=== PATIENT | male | born 1945 | race Caucasian/White ===

== ENCOUNTER 2016-04-05 14:42 | Inpatient (IN) | payer OTHER ==
[~2016-04-05] VITALS: Ht 182.9 cm; Wt 132.8 kg
[~2016-04-05 14:42] MED LIST: ADVAIR 250/501 DISK IH; ALDACTONE25 MG PO; ASCORBIC ACID500 M3 PO; ASPIR-LOW81 MG PO; ASPIRIN81 M2 PO; BACTRIM,SEPT1 TABLET PO; CELEBREX200 MG PO; COREG12.5 M1 PO; COREG12.5 MG PO; COREG25 M1 PO; CORTISPORIN-TC10 M1 RIGHT EAR; COUMADIN PO; CYANOCOBALAM1000 MCG PO; DAILY VITAMIN1 EAC8 PO; DOCUSATE SODIU100 MG PO; DOXYCYCLINE HY100 MG PO; DULERA 200 MCG/13 GM IH; ENDOCET 5-3251 EACH PO; EXFORGE 5/161 TABLET PO; FERROUS SULFAT325 MG PO; FINASTERIDE5 MG PO; FLOMAX0.4 MG PO; FOLIC ACID1 MG PO; FUROSEMIDE20 MG PO; GABAPENTIN300 MG PO; GLIPIZIDE XL5 MG PO; GLIPIZIDE5 MG PO; GLUCOPHAGE XR750 MG PO; GLUCOTROL XL5 MG PO; HYDROCHLOROTHIA25 MG PO; HYZAAR 100-21 TABLET PO; IRON325 MG PO; LANOXIN,DIGIT0.25 MG PO; LASIX20 MG PO; LEVAQUIN750 MG PO; LEVOFLOXACIN500 MG PO; LEXAPRO10 MG PO; LIDOCAINE700 MG TD; LIPITOR40 MG PO; LISINOPRIL20 MG PO; LOVENOX40 MG/0.4 SC; Lasix PO; METFORMIN HCL500 M1 PO; MULTI-VITAMIN-1 EACH PO; MULTIPLE VITAM1 EACH PO; NORVASC5 MG PO; OMEPRAZOLE40 M1 PO; OXYCODONE-APAP1 EACH PO; POTASSIUM CHLO20 ME1 PO; POTASSIUM CHLORIDE PO; PREDNISONE10 MG PO; PRINIVIL5 MG PO; PROAIR HFA8.5 GM IH; PROSCAR5 MG PO; ROXICET 5-3251 EACH PO; SENNA PLUS TAB1 EACH PO; SENOKOT S,PE1 TABLET PO; SERTRALINE HCL100 MG PO; SPIRONOLACTONE25 MG PO; THERAGRAN1 TABLET PO; VENTOLIN HFA18 GM IH; VITAMIN D-32000 UNI2 PO; Vicodin,Lortab 5/500 PO; ZAFIRLUKAST20 M1 PO; [UNRECOGNIZED DRUG - OTHER] PO
[2016-04-05 15:35] LABS: HEMATOCRIT 39.8 % (38.0-50.0); MCH 28.5 PG (29.0-34.0); MCHC 32.2 G/DL (30.0-36.0); MCV 88.6 FL (86-99); MEAN PLAT.VOLUME 11.1 uM^3 (9.0-12.4); PLATELET COUNT 127 K/uL (156-360); RBC DIS.WIDTH-CV 17.2 % (11.8-14.6); RBC DIS.WIDTH-SD 54.2 % (39-53); RED BLOOD COUNT 4.49 M/uL (4.00-5.50); WHITE BLOOD COUNT 5.8 K/uL (4.1-10.2)
[2016-04-05 15:52] LABS: CHLORIDE 105 mEq/L (99-109); POTASSIUM 4.4 mEq/L (3.7-5.4); SODIUM 142 mEq/L (136-147)
[2016-04-05 15:55] LABS: GLUCOSE 175 mg/dL (70-99)
[2016-04-05 15:56] LABS: ANION GAP 9 MEQ/L (2-14)
[2016-04-05 15:58] LABS: ALKALINE PHOSPHATASE 62 IU/L (3-129); GFR ESTIMATE (CALCULATED) 58 mL/min/
[2016-04-05 15:59] LABS: UREA NITROGEN (BUN) 29 mg/dL (9-23)
[2016-04-05 16:00] LABS: DIRECT BILIRUBIN 0.5 mg/dL (0.0-0.3)
[2016-04-05 16:05] LABS: TROP-I INTERPRETATION NEGATIVE; TROPONIN-I 0.03 ng/mL (0.0-0.30)
[2016-04-05 17:50] LABS: INFLUENZA A VIRAL ANTIGEN NEGATIVE; INFLUENZA B VIRAL ANTIGEN NEGATIVE
[2016-04-05] MEDS ORDERED: LOW DOSE ASPIRI81 M1 PO (18:34)
[2016-04-05] MEDS ORDERED: GABAPENTIN600 MG PO (18:35)
[2016-04-05] MEDS ORDERED: VITAMIN D31000 UNI2 PO (18:36)
[2016-04-05] MEDS ORDERED: VITAMIN B-122500 MCG SL (18:42)
[2016-04-05] MEDS ORDERED: FERROUS SULFAT325 MG PO (18:43)
[2016-04-05 20:48] VITALS: BP 164/77
[2016-04-05 22:18] LABS: TROP-I INTERPRETATION NEGATIVE; TROPONIN-I 0.04 ng/mL (0.0-0.30)
[2016-04-06 00:16] VITALS: BP 148/88
[2016-04-06 04:18] VITALS: BP 141/83
[2016-04-06 05:02] LABS: CHLORIDE 104 mEq/L (99-109); SODIUM 142 mEq/L (136-147)
[2016-04-06 05:05] LABS: ANION GAP 11 MEQ/L (2-14)
[2016-04-06 05:07] LABS: GFR ESTIMATE (CALCULATED) > 59 mL/min/
[2016-04-06 05:08] LABS: UREA NITROGEN (BUN) 26 mg/dL (9-23)
[2016-04-06 05:14] LABS: TROP-I INTERPRETATION NEGATIVE; TROPONIN-I 0.04 ng/mL (0.0-0.30)
[2016-04-06 05:19] LABS: GLUCOSE 101 mg/dL (70-99); POTASSIUM 3.4 mEq/L (3.7-5.4)
[2016-04-06 08:18] VITALS: BP 142/94
[2016-04-06 11:30] VITALS: BP 116/61
[2016-04-06 15:50] VITALS: BP 125/71
[2016-04-06 19:41] VITALS: BP 134/81
[2016-04-07] VITALS (7 sets, daily range): BP systolic 129–151; BP diastolic 71–93
[2016-04-07 07:05] LABS: HEMATOCRIT 40.3 % (38.0-50.0); MCH 27.9 PG (29.0-34.0); MEAN PLAT.VOLUME 12.3 uM^3 (9.0-12.4); PLATELET COUNT 117 K/uL (156-360); RBC DIS.WIDTH-CV 17.1 % (11.8-14.6); RBC DIS.WIDTH-SD 56.6 % (39-53); RED BLOOD COUNT 4.48 M/uL (4.00-5.50); WHITE BLOOD COUNT 4.4 K/uL (4.1-10.2)
[2016-04-07 07:48] LABS: ANION GAP 8 MEQ/L (2-14); CHLORIDE 104 MEQ/L (99-109); GFR ESTIMATE (CALCULATED) > 59 mL/min/; GLUCOSE 85 mg/dL (70-99); SAMPLE HEMOLYSIS CHECK 0; SAMPLE ICTERIC CHECK 0; SAMPLE LIPEMIA CHECK 0; SODIUM 145 MEQ/L (136-147); UREA NITROGEN (BUN) 23 mg/dL (9-23)
[2016-04-07 07:49] LABS: POTASSIUM 4.2 MEQ/L (3.7-5.4)
[2016-04-08 03:40] VITALS: BP 128/85
[2016-04-08 08:00] VITALS: BP 156/97
[2016-04-08 11:00] VITALS: BP 121/68
[2016-04-08 16:00] VITALS: BP 122/68
[2016-04-08 20:15] VITALS: BP 132/81
[2016-04-09 00:25] VITALS: BP 136/84
[2016-04-09 04:12] VITALS: BP 162/83
[2016-04-09 07:38] VITALS: BP 145/90
[2016-04-09 08:43] LABS: HEMATOCRIT 36.9 % (38.0-50.0); MCH 27.6 PG (29.0-34.0); MCHC 30.9 G/DL (30.0-36.0); MCV 89.3 FL (86-99); MEAN PLAT.VOLUME 11.5 uM^3 (9.0-12.4); PLATELET COUNT 118 K/uL (156-360); RBC DIS.WIDTH-CV 16.8 % (11.8-14.6); RBC DIS.WIDTH-SD 55.5 % (39-53); RED BLOOD COUNT 4.13 M/uL (4.00-5.50); WHITE BLOOD COUNT 4.5 K/uL (4.1-10.2)
[2016-04-09 09:03] LABS: ANION GAP 6 MEQ/L (2-14); CHLORIDE 104 MEQ/L (99-109); GFR ESTIMATE (CALCULATED) > 59 mL/min/; GLUCOSE 82 mg/dL (70-99); POTASSIUM 3.7 MEQ/L (3.7-5.4); SAMPLE HEMOLYSIS CHECK 0; SAMPLE ICTERIC CHECK 0; SAMPLE LIPEMIA CHECK 0; SODIUM 145 MEQ/L (136-147); UREA NITROGEN (BUN) 23 mg/dL (9-23)
[2016-04-09 11:51] VITALS: BP 122/76
[2016-04-09 15:38] VITALS: BP 138/91
[2016-04-09 19:43] VITALS: BP 143/88
[2016-04-10 00:44] VITALS: BP 149/86
[2016-04-10 08:18] VITALS: BP 149/94
[2016-04-10 08:35] LABS: HEMATOCRIT 38.2 % (38.0-50.0); MCHC 31.2 G/DL (30.0-36.0); MCV 89.9 FL (86-99); MEAN PLAT.VOLUME 12.1 uM^3 (9.0-12.4); PLATELET COUNT 132 K/uL (156-360); RBC DIS.WIDTH-CV 16.9 % (11.8-14.6); RBC DIS.WIDTH-SD 55.2 % (39-53); RED BLOOD COUNT 4.25 M/uL (4.00-5.50); WHITE BLOOD COUNT 5.4 K/uL (4.1-10.2)
[2016-04-10 08:56] LABS: ANION GAP 7 MEQ/L (2-14); CHLORIDE 103 MEQ/L (99-109); GFR ESTIMATE (CALCULATED) > 59 mL/min/; GLUCOSE 82 mg/dL (70-99); SAMPLE HEMOLYSIS CHECK 0; SAMPLE ICTERIC CHECK 0; SAMPLE LIPEMIA CHECK 0; SODIUM 146 MEQ/L (136-147); UREA NITROGEN (BUN) 21 mg/dL (9-23)
[2016-04-10] MEDS ORDERED: ADVAIR HFA120 INHAL1 IH (10:14)
== END 2016-04-10 15:10 | disposition home or self-care (01) | DRG 291 ==
LOC: EME 14:42 → 5SOUTH 19:12 → EDOF 19:12 → 5SOUTH 20:36
PROVIDERS: Emergency Medicine; Family Medicine; Hospitalist; Physician Assistant Medical
DX: I50.43 Acute on chronic combined systolic (congestive) and diastolic (congestive) heart failure (principal); J96.21 Acute and chronic respiratory failure with hypoxia; E87.0 Hyperosmolality and hypernatremia; E66.01 Morbid (severe) obesity due to excess calories; I27.2 Other secondary pulmonary hypertension; Z99.81 Dependence on supplemental oxygen; M16.0 Bilateral primary osteoarthritis of hip; G47.33 Obstructive sleep apnea (adult) (pediatric); E87.6 Hypokalemia; I10 Essential (primary) hypertension; E11.9 Type 2 diabetes mellitus without complications; E78.5 Hyperlipidemia, unspecified; J44.9 Chronic obstructive pulmonary disease, unspecified; N20.0 Calculus of kidney; K05.10 Chronic gingivitis, plaque induced; I51.7 Cardiomegaly; R43.0 Anosmia; Z98.84 Bariatric surgery status; Z68.37 Body mass index [BMI] 37.0-37.9, adult; Z96.642 Presence of left artificial hip joint; Z96.652 Presence of left artificial knee joint; Z87.891 Personal history of nicotine dependence
CPT/HCPCS: 70450; 71010; 71020; 80048; 80076; 83880; 84484; 85027; 87502; 93005; 93306; 94640; 94640 76; 94660; 94760; 94799; 99202; 99281; 99285; J1644; J1940

== ENCOUNTER 2016-04-17 05:54 | Emergency (ER) | payer OTHER ==
[~2016-04-17] VITALS: Ht 182.9 cm; Wt 125.0 kg
[~2016-04-17 05:54] MED LIST changes: +ADVAIR HFA120 INHAL1 IH; +GABAPENTIN600 MG PO; +LOW DOSE ASPIRI81 M1 PO; +VITAMIN B-122500 MCG SL; +VITAMIN D31000 UNI2 PO
[2016-04-17 06:50] LABS: HEMATOCRIT 39.1 % (38.0-50.0); MCH 27.6 PG (29.0-34.0); MCHC 31.5 G/DL (30.0-36.0); MCV 87.7 FL (86-99); PLATELET COUNT 164 K/uL (156-360); RBC DIS.WIDTH-CV 16.9 % (11.8-14.6); RBC DIS.WIDTH-SD 52.9 % (39-53); RED BLOOD COUNT 4.46 M/uL (4.00-5.50); WHITE BLOOD COUNT 7.2 K/uL (4.1-10.2)
[2016-04-17 06:52] LABS: CHLORIDE 107 mEq/L (99-109); POTASSIUM 3.9 mEq/L (3.7-5.4); SODIUM 144 mEq/L (136-147)
[2016-04-17 06:54] LABS: GLUCOSE 104 mg/dL (70-99)
[2016-04-17 06:55] LABS: ANION GAP 9 MEQ/L (2-14)
[2016-04-17 06:58] LABS: GFR ESTIMATE (CALCULATED) > 59 mL/min/
[2016-04-17 07:00] LABS: UREA NITROGEN (BUN) 32 mg/dL (9-23)
[2016-04-17 08:23] VITALS: BP 147/83
== END 2016-04-17 08:24 | disposition home or self-care (01) ==
LOC: EME 05:54
PROVIDERS: Emergency Medicine
DX: R04.0 Epistaxis (principal); I10 Essential (primary) hypertension; E11.9 Type 2 diabetes mellitus without complications; Z96.641 Presence of right artificial hip joint; Z96.652 Presence of left artificial knee joint; Z88.0 Allergy status to penicillin; Z91.041 Radiographic dye allergy status
CPT/HCPCS: 80048; 85027; 99281; 99284

== ENCOUNTER 2016-06-03 16:54 | Inpatient (IN) | payer OTHER ==
[~2016-06-03] VITALS: Ht 182.9 cm; Wt 124.1 kg
[2016-06-03 17:26] LABS: MCH 27.9 PG (29.0-34.0); MCHC 30.7 G/DL (30.0-36.0); MCV 90.9 FL (86-99); MEAN PLAT.VOLUME 11.5 uM^3 (9.0-12.4); PLATELET COUNT 151 K/uL (156-360); RBC DIS.WIDTH-SD 59.7 % (39-53); RED BLOOD COUNT 4.73 M/uL (4.00-5.50); WHITE BLOOD COUNT 5.8 K/uL (4.1-10.2)
[2016-06-03 17:40] LABS: CHLORIDE 105 mEq/L (99-109); POTASSIUM 3.9 mEq/L (3.7-5.4); SODIUM 144 mEq/L (136-147)
[2016-06-03 17:42] LABS: GLUCOSE 114 mg/dL (70-99)
[2016-06-03 17:43] LABS: ANION GAP 10 MEQ/L (2-14)
[2016-06-03 17:46] LABS: GFR ESTIMATE (CALCULATED) 58 mL/min/
[2016-06-03 17:47] LABS: TROP-I INTERPRETATION NEGATIVE; TROPONIN-I 0.02 ng/mL (0.0-0.30); UREA NITROGEN (BUN) 29 mg/dL (9-23)
[2016-06-03] MEDS ORDERED: LASIX40 MG PO (19:38)
[2016-06-03] MEDS ORDERED: SYMBICORT60 INHALAT IH (19:39)
[2016-06-03] MEDS ORDERED: ADULTS 50+ MUL1 EACH PO (19:42)
[2016-06-04 00:18] VITALS: BP 142/84
[2016-06-04 01:30] LABS: TROP-I INTERPRETATION NEGATIVE; TROPONIN-I 0.02 ng/mL (0.0-0.30)
[2016-06-04 04:30] VITALS: BP 165/96
[2016-06-04 06:15] LABS: ANION GAP 8 MEQ/L (2-14); CHLORIDE 102 MEQ/L (99-109); GFR ESTIMATE (CALCULATED) > 59 mL/min/; POTASSIUM 3.7 MEQ/L (3.7-5.4); SAMPLE HEMOLYSIS CHECK 0; SAMPLE ICTERIC CHECK 0; SAMPLE LIPEMIA CHECK 0; SODIUM 142 MEQ/L (136-147); UREA NITROGEN (BUN) 29 mg/dL (9-23)
[2016-06-04 06:16] LABS: TROP-I INTERPRETATION NEGATIVE; TROPONIN-I 0.02 ng/mL (0.0-0.30)
[2016-06-04 06:17] LABS: GLUCOSE 180 mg/dL (70-99)
[2016-06-04 06:40] LABS: HEMATOCRIT 40.5 % (38.0-50.0); MCH 28.3 PG (29.0-34.0); MCHC 31.9 G/DL (30.0-36.0); MCV 88.8 FL (86-99); MEAN PLAT.VOLUME 11.8 uM^3 (9.0-12.4); PLATELET COUNT 131 K/uL (156-360); RBC DIS.WIDTH-CV 17.9 % (11.8-14.6); RBC DIS.WIDTH-SD 58.4 % (39-53); RED BLOOD COUNT 4.56 M/uL (4.00-5.50)
[2016-06-04 06:49] LABS: POINT-OF-CARE METER ID UU14188577
[2016-06-04 07:54] VITALS: BP 164/97
[2016-06-04 12:48] LABS: ADD MIUA? NO; BILIRUBIN NEGATIVE; BLOOD NEGATIVE; COLOR YELLOW ((YELLOW)); GLUCOSE (STRIP) NEGATIVE; KETONES NEGATIVE; LEUKOCYTES NEGATIVE; NITRITE NEGATIVE; PROTEIN (STRIP) NEGATIVE; SPECIFIC GRAVITY 1.014 (1.000-1.030); UCUL ADDED? NO; UROBILINOGEN 0.2 MG/DL (0.2-1.0)
[2016-06-04 15:05] VITALS: BP 135/79
[2016-06-04 19:24] VITALS: BP 120/76
[2016-06-05 00:32] VITALS: BP 135/82
[2016-06-05 03:54] VITALS: BP 134/82
[2016-06-05 06:37] LABS: POINT-OF-CARE METER ID UU14188577
[2016-06-05 08:08] VITALS: BP 156/91
[2016-06-05 09:15] LABS: HEMATOCRIT 40.3 % (38.0-50.0); MCH 27.7 PG (29.0-34.0); MCHC 30.8 G/DL (30.0-36.0); MCV 90.2 FL (86-99); MEAN PLAT.VOLUME 12.2 uM^3 (9.0-12.4); PLATELET COUNT 147 K/uL (156-360); RBC DIS.WIDTH-CV 18.2 % (11.8-14.6); RBC DIS.WIDTH-SD 59.3 % (39-53); RED BLOOD COUNT 4.47 M/uL (4.00-5.50); WHITE BLOOD COUNT 6.8 K/uL (4.1-10.2)
[2016-06-05 09:33] LABS: ANION GAP 10 MEQ/L (2-14); CHLORIDE 101 MEQ/L (99-109); GFR ESTIMATE (CALCULATED) > 59 mL/min/; GLUCOSE 148 mg/dL (70-99); POTASSIUM 3.2 MEQ/L (3.7-5.4); SAMPLE HEMOLYSIS CHECK 0; SAMPLE ICTERIC CHECK 0; SAMPLE LIPEMIA CHECK 0; SODIUM 143 MEQ/L (136-147); UREA NITROGEN (BUN) 27 mg/dL (9-23)
[2016-06-05 11:38] LABS: POINT-OF-CARE METER ID UU14149397
[2016-06-05 11:55] VITALS: BP 118/70
[2016-06-05 21:10] VITALS: BP 130/72
[2016-06-06 00:03] VITALS: BP 127/77
[2016-06-06 08:22] VITALS: BP 154/84
[2016-06-06 12:02] LABS: POINT-OF-CARE METER ID UU14188577
[2016-06-06] MEDS ORDERED: Ocean Nasal 0.65% BOTH NARES (14:07)
[2016-06-06] MEDS ORDERED: BUMETANIDE1 MG PO (14:07)
== END 2016-06-06 16:10 | disposition home or self-care (01) | DRG 292 ==
LOC: EME 16:54 → EDOF 22:23 → 3EAST 22:23
PROVIDERS: Hospitalist; Physician Assistant; Student in an Organized Health Care Education/Training Program
PROC: 5A09457 Assistance with Respiratory Ventilation, 24-96 Consecutive Hours, Continuous Positive Airway Pressure (ICD-10-PCS; principal; 2016-06-03)
DX: I50.33 Acute on chronic diastolic (congestive) heart failure (principal); J90 Pleural effusion, not elsewhere classified; I42.9 Cardiomyopathy, unspecified; R09.02 Hypoxemia; G47.30 Sleep apnea, unspecified; D69.6 Thrombocytopenia, unspecified; J44.9 Chronic obstructive pulmonary disease, unspecified; I50.9 Heart failure, unspecified; E11.9 Type 2 diabetes mellitus without complications; G89.29 Other chronic pain; E78.5 Hyperlipidemia, unspecified; I10 Essential (primary) hypertension; N40.0 Benign prostatic hyperplasia without lower urinary tract symptoms; F32.9 Major depressive disorder, single episode, unspecified; E66.01 Morbid (severe) obesity due to excess calories; I27.2 Other secondary pulmonary hypertension; Z91.11 Patient's noncompliance with dietary regimen; Z99.81 Dependence on supplemental oxygen; Z87.891 Personal history of nicotine dependence; Z88.8 Allergy status to other drugs, medicaments and biological substances; Z88.0 Allergy status to penicillin
CPT/HCPCS: 71020; 71275; 80048; 81003; 82948; 83880; 84484; 85027; 93005; 93970; 94640; 94640 76; 94660; 94799; 99202; 99281; 99285; J1200; J1644; J1815; J1940; J2930

== ENCOUNTER 2017-03-26 22:43 | Inpatient (IN) | payer OTHER ==
[~2017-03-26] VITALS: Ht 182.9 cm; Wt 123.1 kg
[~2017-03-26 22:43] MED LIST changes: +ADULTS 50+ MUL1 EACH PO; +BUMETANIDE1 MG PO; +BUMEX1 MG PO; +LASIX40 MG PO; +OXYCODONE HCL5 MG PO; +Ocean Nasal 0.65% BOTH NARES; +SYMBICORT60 INHALAT IH
[2017-03-27 05:56] VITALS: BP 170/96
== END 2017-03-27 07:00 | disposition home or self-care (01) | DRG 554 ==
LOC: ENRESERV 22:43 → CANRESERV 22:43 → 2SOUTH 03-27 05:30
PROVIDERS: Orthopaedic Surgery
DX: M17.9 Osteoarthritis of knee, unspecified (principal); Z53.9 Procedure and treatment not carried out, unspecified reason; I11.0 Hypertensive heart disease with heart failure; I50.9 Heart failure, unspecified; G47.30 Sleep apnea, unspecified; F32.9 Major depressive disorder, single episode, unspecified; F41.9 Anxiety disorder, unspecified; E78.5 Hyperlipidemia, unspecified; G25.81 Restless legs syndrome; J44.9 Chronic obstructive pulmonary disease, unspecified; Z96.652 Presence of left artificial knee joint; Z96.643 Presence of artificial hip joint, bilateral; Z98.84 Bariatric surgery status; Z88.0 Allergy status to penicillin; Z91.041 Radiographic dye allergy status; Z79.82 Long term (current) use of aspirin; Z87.891 Personal history of nicotine dependence; Z99.81 Dependence on supplemental oxygen; N40.0 Benign prostatic hyperplasia without lower urinary tract symptoms; E11.9 Type 2 diabetes mellitus without complications; K21.9 Gastro-esophageal reflux disease without esophagitis
CPT/HCPCS: 36415; 82948; 86850; 86900; 86901; 93005; J7050

== ENCOUNTER 2017-04-09 21:10 | Inpatient (IN) | payer OTHER ==
[~2017-04-09] VITALS: Ht 185.4 cm; Wt 123.0 kg
[~2017-04-09 21:10] MED LIST changes: +CALCIUM 500 MG1 EACH PO; +IRON160 M1 PO
[2017-04-10 08:38] VITALS: BP 136/83
[2017-04-10 11:57] LABS: HEMATOCRIT 39.8 % (38.0-50.0); MCH 28.6 PG (29.0-34.0); MCHC 30.9 G/DL (30.0-36.0); MCV 92.6 FL (86-99); PLATELET COUNT 119 K/uL (156-360); RBC DIS.WIDTH-CV 15.7 % (11.8-14.6); RBC DIS.WIDTH-SD 52.9 % (39-53); WHITE BLOOD COUNT 3.9 K/uL (4.1-10.2)
[2017-04-10 12:00] LABS: HEMOGLOBIN 12.3 G/DL (12.5-16.6)
[2017-04-10 13:45] VITALS: BP 109/68
[2017-04-10] MEDS ORDERED: COMPAZINE25 M1 PR (15:19)
[2017-04-10 15:46] VITALS: BP 118/70
[2017-04-10 20:25] VITALS: BP 130/74
[2017-04-11] VITALS (17 sets, daily range): BP systolic 74–133; BP diastolic 44–76
[2017-04-11 05:59] LABS: HEMATOCRIT 36.7 % (38.0-50.0); HEMOGLOBIN 11.4 G/DL (12.5-16.6); MCV 92.4 FL (86-99)
[2017-04-11 06:21] LABS: CHLORIDE 104 MEQ/L (99-109); CREATININE 1.2 MG/DL (0.6-1.3); GFR ESTIMATE (CALCULATED) > 59 mL/min/ (58.99-99999); GLUCOSE 110 mg/dL (70-99); POTASSIUM 4.3 MEQ/L (3.7-5.4); SODIUM 141 MEQ/L (136-147); UREA NITROGEN (BUN) 30 mg/dL (9-23)
[2017-04-11 13:01] LABS: HEMATOCRIT 36.4 % (38.0-50.0); HEMOGLOBIN 11.5 G/DL (12.5-16.6); MCHC 31.6 G/DL (30.0-36.0); PLATELET COUNT 117 K/uL (156-360); RBC DIS.WIDTH-CV 15.3 % (11.8-14.6); RBC DIS.WIDTH-SD 53.3 % (39-53); RED BLOOD COUNT 3.83 M/uL (4.00-5.50); WHITE BLOOD COUNT 8.1 K/uL (4.1-10.2)
[2017-04-11 13:12] LABS: ALBUMIN 3.3 G/DL (3.2-4.8); CHLORIDE 103 MEQ/L (99-109); POTASSIUM 3.9 MEQ/L (3.7-5.4); SODIUM 140 MEQ/L (136-147); TOTAL BILIRUBIN 0.8 MG/DL (0.0-1.0)
[2017-04-11 13:18] LABS: ALKALINE PHOSPHATASE 66 IU/L (3-129); ALT (GPT) 13 IU/L (3-49); AST (GOT) 13 IU/L (2-34); CREATININE 1.4 MG/DL (0.6-1.3); GFR ESTIMATE (CALCULATED) 53 mL/min/ (58.99-99999); GLUCOSE 129 mg/dL (70-99); TOTAL PROTEIN 5.7 G/DL (6.4-8.3); UREA NITROGEN (BUN) 32 mg/dL (9-23)
[2017-04-11 13:23] LABS: TROP-I INTERPRETATION NEGATIVE; TROPONIN-I 0.02 ng/mL (0.0-0.30)
[2017-04-11 18:31] LABS: TROP-I INTERPRETATION NEGATIVE; TROPONIN-I 0.02 ng/mL (0.0-0.30)
[2017-04-12] VITALS (22 sets, daily range): BP systolic 96–133; BP diastolic 57–83
[2017-04-12 01:08] LABS: TROP-I INTERPRETATION NEGATIVE; TROPONIN-I 0.02 ng/mL (0.0-0.30)
[2017-04-12 04:53] LABS: BASOPHIL (%) 0.5 % (0-1); EOSINOPHIL (%) 5.6 % (0-5); EOSINOPHIL COUNT 0.5 K/uL (0-0.3); HEMATOCRIT 35.2 % (38.0-50.0); HEMOGLOBIN 11.6 G/DL (12.5-16.6); IMMATURE GRANULOCYTE (%) 0.4 % (0.0-0.7); LYMPHOCYTE (%) 8.3 % (15-42); LYMPHOCYTE COUNT 0.7 K/uL (1.0-2.8); MCH 29.9 PG (29.0-34.0); MONOCYTE (%) 10.6 % (3-12); MONOCYTE COUNT 0.9 K/uL (0-0.8); NEUTROPHIL (%) 74.6 % (45-76); NEUTROPHIL COUNT 6.4 K/uL (1.8-6.4); PLATELET COUNT 106 K/uL (156-360); RBC DIS.WIDTH-CV 15.3 % (11.8-14.6); RBC DIS.WIDTH-SD 50.4 % (39-53); RED BLOOD COUNT 3.88 M/uL (4.00-5.50); WHITE BLOOD COUNT 8.5 K/uL (4.1-10.2)
[2017-04-12 04:54] LABS: MCV 90.7 FL (86-99)
[2017-04-12 05:09] LABS: CHLORIDE 102 mEq/L (99-109); SODIUM 141 mEq/L (136-147)
[2017-04-12 05:10] LABS: GLUCOSE 107 mg/dL (70-99)
[2017-04-12 05:14] LABS: CREATININE 1.3 mg/dL (0.6-1.3); GFR ESTIMATE (CALCULATED) 58 mL/min/ (58.99-99999)
[2017-04-12 05:15] LABS: UREA NITROGEN (BUN) 28 mg/dL (9-23)
[2017-04-13] VITALS (20 sets, daily range): BP systolic 85–145; BP diastolic 56–75
[2017-04-13 16:38] LABS: BASOPHIL (%) 0.4 % (0-1); EOSINOPHIL (%) 4.3 % (0-5); EOSINOPHIL COUNT 0.2 K/uL (0-0.3); HEMATOCRIT 33.2 % (38.0-50.0); HEMOGLOBIN 10.5 G/DL (12.5-16.6); IMMATURE GRANULOCYTE (%) 0.2 % (0.0-0.7); LYMPHOCYTE (%) 11.7 % (15-42); LYMPHOCYTE COUNT 0.6 K/uL (1.0-2.8); MCH 29.5 PG (29.0-34.0); MCHC 31.6 G/DL (30.0-36.0); MCV 93.3 FL (86-99); MONOCYTE (%) 9.6 % (3-12); MONOCYTE COUNT 0.5 K/uL (0-0.8); NEUTROPHIL (%) 73.8 % (45-76); NEUTROPHIL COUNT 3.9 K/uL (1.8-6.4); PLATELET COUNT 90 K/uL (156-360); RBC DIS.WIDTH-CV 15.8 % (11.8-14.6); RBC DIS.WIDTH-SD 54.2 % (39-53); RED BLOOD COUNT 3.56 M/uL (4.00-5.50); WHITE BLOOD COUNT 5.3 K/uL (4.1-10.2)
[2017-04-13 16:48] LABS: ALBUMIN 3.2 G/DL (3.2-4.8); CHLORIDE 104 MEQ/L (99-109); MAGNESIUM 1.9 mg/dl (1.3-2.7); POTASSIUM 4.1 MEQ/L (3.7-5.4); SODIUM 140 MEQ/L (136-147); TOTAL BILIRUBIN 0.8 MG/DL (0.0-1.0)
[2017-04-13 16:54] LABS: ALKALINE PHOSPHATASE 59 IU/L (3-129); ALT (GPT) 10 IU/L (3-49); AST (GOT) 11 IU/L (2-34); CREATININE 1.1 MG/DL (0.6-1.3); GFR ESTIMATE (CALCULATED) > 59 mL/min/ (58.99-99999); GLUCOSE 111 mg/dL (70-99); PHOSPHORUS 2.9 mg/dL (2.5-4.9); TOTAL PROTEIN 5.8 G/DL (6.4-8.3); UREA NITROGEN (BUN) 28 mg/dL (9-23)
[2017-04-14] VITALS (8 sets, daily range): BP systolic 124–155; BP diastolic 60–85
[2017-04-14 05:08] LABS: BASOPHIL (%) 0.7 % (0-1); EOSINOPHIL (%) 4.3 % (0-5); EOSINOPHIL COUNT 0.3 K/uL (0-0.3); HEMATOCRIT 31.1 % (38.0-50.0); HEMOGLOBIN 9.7 G/DL (12.5-16.6); IMMATURE GRANULOCYTE (%) 0.2 % (0.0-0.7); LYMPHOCYTE (%) 12.5 % (15-42); LYMPHOCYTE COUNT 0.8 K/uL (1.0-2.8); MCHC 31.2 G/DL (30.0-36.0); MCV 93.1 FL (86-99); MONOCYTE (%) 10.6 % (3-12); MONOCYTE COUNT 0.6 K/uL (0-0.8); NEUTROPHIL (%) 71.7 % (45-76); NEUTROPHIL COUNT 4.3 K/uL (1.8-6.4); PLATELET COUNT 94 K/uL (156-360); RBC DIS.WIDTH-CV 15.5 % (11.8-14.6); RBC DIS.WIDTH-SD 53.2 % (39-53); RED BLOOD COUNT 3.34 M/uL (4.00-5.50)
[2017-04-14 05:45] LABS: ALBUMIN 3.1 G/DL (3.2-4.8); ALKALINE PHOSPHATASE 61 IU/L (3-129); ALT (GPT) 11 IU/L (3-49); AST (GOT) 12 IU/L (2-34); CHLORIDE 103 MEQ/L (99-109); CREATININE 1.1 MG/DL (0.6-1.3); GFR ESTIMATE (CALCULATED) > 59 mL/min/ (58.99-99999); GLUCOSE 89 mg/dL (70-99); PHOSPHORUS 3.1 mg/dL (2.5-4.9); SODIUM 141 MEQ/L (136-147); TOTAL PROTEIN 5.4 G/DL (6.4-8.3); UREA NITROGEN (BUN) 28 mg/dL (9-23)
[2017-04-14] MEDS ORDERED: SENNA PLUS TAB1 EACH PO (08:09)
[2017-04-14] MEDS ORDERED: LOVENOX40 MG/0.4 SC (08:10)
[2017-04-14] MEDS ORDERED: ENDOCET 5-3251 EACH PO (08:10)
[2017-04-15] VITALS (7 sets, daily range): BP systolic 125–169; BP diastolic 65–88
[2017-04-15 06:59] LABS: BASOPHIL (%) 0.7 % (0-1); EOSINOPHIL (%) 4.8 % (0-5); EOSINOPHIL COUNT 0.3 K/uL (0-0.3); HEMATOCRIT 31.5 % (38.0-50.0); HEMOGLOBIN 9.9 G/DL (12.5-16.6); IMMATURE GRANULOCYTE (%) 0.4 % (0.0-0.7); LYMPHOCYTE (%) 14.7 % (15-42); LYMPHOCYTE COUNT 0.8 K/uL (1.0-2.8); MCH 28.7 PG (29.0-34.0); MCHC 31.4 G/DL (30.0-36.0); MCV 91.3 FL (86-99); MONOCYTE (%) 10.4 % (3-12); MONOCYTE COUNT 0.6 K/uL (0-0.8); NEUTROPHIL COUNT 3.8 K/uL (1.8-6.4); PLATELET COUNT 121 K/uL (156-360); RBC DIS.WIDTH-CV 15.3 % (11.8-14.6); RBC DIS.WIDTH-SD 51.2 % (39-53); RED BLOOD COUNT 3.45 M/uL (4.00-5.50); WHITE BLOOD COUNT 5.6 K/uL (4.1-10.2)
[2017-04-15 07:39] LABS: ALBUMIN 3.2 G/DL (3.2-4.8); ALKALINE PHOSPHATASE 72 IU/L (3-129); ALT (GPT) 13 IU/L (3-49); AST (GOT) 15 IU/L (2-34); CHLORIDE 103 MEQ/L (99-109); CREATININE 1.1 MG/DL (0.6-1.3); GFR ESTIMATE (CALCULATED) > 59 mL/min/ (58.99-99999); GLUCOSE 106 mg/dL (70-99); MAGNESIUM 1.9 mg/dl (1.3-2.7); PHOSPHORUS 3.2 mg/dL (2.5-4.9); SODIUM 142 MEQ/L (136-147); TOTAL BILIRUBIN 1.2 MG/DL (0.0-1.0); TOTAL PROTEIN 5.6 G/DL (6.4-8.3); UREA NITROGEN (BUN) 28 mg/dL (9-23)
[2017-04-16 04:17] VITALS: BP 140/65
[2017-04-16 05:49] LABS: BASOPHIL (%) 0.8 % (0-1); BASOPHIL COUNT 0.1 K/uL (0-0.1); EOSINOPHIL (%) 4.9 % (0-5); EOSINOPHIL COUNT 0.3 K/uL (0-0.3); HEMATOCRIT 33.1 % (38.0-50.0); HEMOGLOBIN 10.7 G/DL (12.5-16.6); IMMATURE GRANULOCYTE (%) 0.3 % (0.0-0.7); LYMPHOCYTE (%) 16.2 % (15-42); MCH 29.3 PG (29.0-34.0); MCHC 32.3 G/DL (30.0-36.0); MCV 90.7 FL (86-99); MONOCYTE (%) 10.8 % (3-12); MONOCYTE COUNT 0.7 K/uL (0-0.8); NEUTROPHIL COUNT 4.1 K/uL (1.8-6.4); PLATELET COUNT 141 K/uL (156-360); RBC DIS.WIDTH-CV 15.2 % (11.8-14.6); RBC DIS.WIDTH-SD 50.8 % (39-53); RED BLOOD COUNT 3.65 M/uL (4.00-5.50); WHITE BLOOD COUNT 6.1 K/uL (4.1-10.2)
[2017-04-16 06:18] LABS: ALBUMIN 3.2 G/DL (3.2-4.8); ALKALINE PHOSPHATASE 72 IU/L (3-129); ALT (GPT) 14 IU/L (3-49); AST (GOT) 17 IU/L (2-34); CHLORIDE 101 MEQ/L (99-109); CREATININE 1.1 MG/DL (0.6-1.3); GFR ESTIMATE (CALCULATED) > 59 mL/min/ (58.99-99999); GLUCOSE 109 mg/dL (70-99); MAGNESIUM 1.9 mg/dl (1.3-2.7); PHOSPHORUS 3.6 mg/dL (2.5-4.9); POTASSIUM 4.4 MEQ/L (3.7-5.4); SODIUM 141 MEQ/L (136-147); TOTAL PROTEIN 5.5 G/DL (6.4-8.3); UREA NITROGEN (BUN) 28 mg/dL (9-23)
[2017-04-16 06:19] LABS: TOTAL BILIRUBIN 1.5 MG/DL (0.0-1.0)
[2017-04-16 07:16] VITALS: BP 178/77
[2017-04-16 12:04] VITALS: BP 129/74
[2017-04-16] MEDS ORDERED: SINGULAIR10 MG PO (15:04)
[2017-04-16] MEDS ORDERED: NEURONTIN300 MG PO (15:11)
[2017-04-16] MEDS ORDERED: ADVAIR HFA120 INHAL1 IH (15:16)
[2017-04-16] MEDS ORDERED: ENDOCET 10-3251 EACH PO (15:20)
[2017-04-16] MEDS ORDERED: ENDOCET 5-3251 EACH PO (15:21)
[2017-04-16] MEDS ORDERED: LAXATIVE5 M1 PO (15:23)
== END 2017-04-16 13:48 | DRG 470 ==
LOC: ENRESERV 21:10 → 4WEST 04-10 07:25 → 3WEST 04-10 07:25 → 2SOUTH 04-10 07:25 → 3WEST 04-10 12:49 → ENRESERV 04-11 12:51 → CANRESERV 04-11 12:51 → ENRESERV 04-11 12:56 → 4WEST 04-11 12:56 → ENRESERVTM 04-11 12:56 → ENRESERVDT 04-11 12:56 → 4WEST 04-13 16:26 → ENRESERV 04-13 16:27 → 3EAST 04-13 21:37
PROVIDERS: Hospitalist; Internal Medicine; Internal Medicine Critical Care Medicine; Orthopaedic Surgery; Specialist
PROC: 0SRC0J9 Replacement of Right Knee Joint with Synthetic Substitute, Cemented, Open Approach (ICD-10-PCS; principal; 2017-04-10)
PROC: 5A09357 Assistance with Respiratory Ventilation, Less than 24 Consecutive Hours, Continuous Positive Airway Pressure (ICD-10-PCS; 2017-04-11)
DX: M17.11 Unilateral primary osteoarthritis, right knee (principal); N17.9 Acute kidney failure, unspecified; R00.1 Bradycardia, unspecified; R09.02 Hypoxemia; I95.2 Hypotension due to drugs; E11.9 Type 2 diabetes mellitus without complications; G47.33 Obstructive sleep apnea (adult) (pediatric); N28.0 Ischemia and infarction of kidney; J44.9 Chronic obstructive pulmonary disease, unspecified; I11.0 Hypertensive heart disease with heart failure; I25.10 Atherosclerotic heart disease of native coronary artery without angina pectoris; I42.9 Cardiomyopathy, unspecified; Z96.643 Presence of artificial hip joint, bilateral; Z96.652 Presence of left artificial knee joint; Z87.891 Personal history of nicotine dependence; E78.5 Hyperlipidemia, unspecified; I50.20 Unspecified systolic (congestive) heart failure; E87.2 Acidosis; E66.9 Obesity, unspecified; Z68.36 Body mass index [BMI] 36.0-36.9, adult; J98.11 Atelectasis; Z79.899 Other long term (current) drug therapy
CPT/HCPCS: 36415; 71045; 73560; 80048; 80053; 82948; 83605; 83735; 84100; 84484; 85014; 85018; 85025; 85027; 85610 GA; 86850; 86900; 86901; 87081; 87641; 93005; 94640; 94640 76; 94660; 94760; 94799; 97530 GO; 99202; C1713; J0131; J1100; J1170; J1265; J1650; J1940; J2250; J2405; J2795; J3010; J7030; J7050

== ENCOUNTER 2017-04-13 09:47 | Inpatient (IN) | payer OTHER ==
[~2017-04-13] VITALS: Ht 182.9 cm; Wt 130.3 kg
[~2017-04-13 09:47] MED LIST changes: +COMPAZINE25 M1 PR
[2017-04-14] MEDS ORDERED: SENNA PLUS TAB1 EACH PO (08:09)
[2017-04-14] MEDS ORDERED: ENDOCET 5-3251 EACH PO (08:10)
[2017-04-14] MEDS ORDERED: LOVENOX40 MG/0.4 SC (08:10)
[2017-04-16 13:35] VITALS: BP 122/56
[2017-04-16] MEDS ORDERED: SINGULAIR10 MG PO (15:04)
[2017-04-16] MEDS ORDERED: NEURONTIN300 MG PO (15:11)
[2017-04-16] MEDS ORDERED: ADVAIR HFA120 INHAL1 IH (15:16)
[2017-04-16] MEDS ORDERED: ENDOCET 10-3251 EACH PO (15:20)
[2017-04-16] MEDS ORDERED: ENDOCET 5-3251 EACH PO (15:21)
[2017-04-16] MEDS ORDERED: LAXATIVE5 M1 PO (15:23)
[2017-04-16 15:38] VITALS: BP 125/65
[2017-04-16 15:53] LABS: HEMATOCRIT 32.9 % (38.0-50.0); HEMOGLOBIN 10.3 G/DL (12.5-16.6); MCH 28.5 PG (29.0-34.0); MCHC 31.3 G/DL (30.0-36.0); MCV 90.9 FL (86-99); PLATELET COUNT 141 K/uL (156-360); RBC DIS.WIDTH-CV 15.2 % (11.8-14.6); RBC DIS.WIDTH-SD 50.7 % (39-53); RED BLOOD COUNT 3.62 M/uL (4.00-5.50); WHITE BLOOD COUNT 5.3 K/uL (4.1-10.2)
[2017-04-16 16:15] LABS: ALBUMIN 3.1 G/DL (3.2-4.8); ALKALINE PHOSPHATASE 71 IU/L (3-129); ALT (GPT) 13 IU/L (3-49); AST (GOT) 15 IU/L (2-34); CHLORIDE 104 MEQ/L (99-109); CREATININE 1.1 MG/DL (0.6-1.3); GFR ESTIMATE (CALCULATED) > 59 mL/min/ (58.99-99999); GLUCOSE 119 mg/dL (70-99); POTASSIUM 3.7 MEQ/L (3.7-5.4); SODIUM 142 MEQ/L (136-147); TOTAL BILIRUBIN 1.4 MG/DL (0.0-1.0); TOTAL PROTEIN 5.7 G/DL (6.4-8.3); UREA NITROGEN (BUN) 28 mg/dL (9-23)
[2017-04-16 22:48] VITALS: BP 140/84
[2017-04-17 05:51] VITALS: BP 136/84
[2017-04-17 10:08] VITALS: BP 124/65
[2017-04-17 15:29] VITALS: BP 121/67
[2017-04-18 05:40] VITALS: BP 145/84
[2017-04-18 14:49] VITALS: BP 126/68
[2017-04-18 19:41] VITALS: BP 132/72
[2017-04-19 06:03] VITALS: BP 131/80
[2017-04-19 15:22] VITALS: BP 117/63
[2017-04-20 04:59] VITALS: BP 161/84
[2017-04-20 07:15] VITALS: BP 158/76
[2017-04-20 15:32] VITALS: BP 136/78
[2017-04-20 20:42] VITALS: BP 134/77
[2017-04-21 04:40] VITALS: BP 151/97
[2017-04-21 07:00] VITALS: BP 150/86
[2017-04-21 15:30] VITALS: BP 120/79
[2017-04-22 05:34] VITALS: BP 166/79
[2017-04-22 15:20] VITALS: BP 135/77
[2017-04-23 04:26] LABS: HEMATOCRIT 34.6 % (38.0-50.0); MCHC 31.8 G/DL (30.0-36.0); MCV 91.3 FL (86-99); RBC DIS.WIDTH-SD 52.1 % (39-53); RED BLOOD COUNT 3.79 M/uL (4.00-5.50); WHITE BLOOD COUNT 6.7 K/uL (4.1-10.2)
[2017-04-23 04:37] LABS: PLATELET COUNT 193 K/uL (156-360)
[2017-04-23 04:40] LABS: ALBUMIN 3.4 g/dL (3.2-4.8); CHLORIDE 102 mEq/L (99-109); POTASSIUM 3.1 mEq/L (3.7-5.4); SODIUM 142 mEq/L (136-147)
[2017-04-23 04:43] LABS: GLUCOSE 106 mg/dL (70-99); TOTAL PROTEIN 5.7 g/dL (6.4-8.3)
[2017-04-23 04:45] LABS: TOTAL BILIRUBIN 2.1 mg/dL (0.0-1.0)
[2017-04-23 04:46] LABS: ALKALINE PHOSPHATASE 84 IU/L (3-129); GFR ESTIMATE (CALCULATED) > 59 mL/min/ (58.99-99999)
[2017-04-23 04:47] LABS: UREA NITROGEN (BUN) 24 mg/dL (9-23)
[2017-04-23 04:48] LABS: AST (GOT) 19 IU/L (2-34)
[2017-04-23 04:49] LABS: ALT (GPT) 14 IU/L (3-49)
[2017-04-23 05:50] VITALS: BP 161/85
[2017-04-23 15:23] VITALS: BP 140/71
[2017-04-23 21:30] VITALS: BP 123/61
[2017-04-23] MEDS ORDERED: LOVENOX40 MG/0.4 SC (21:53)
[2017-04-23] MEDS ORDERED: POLYETHYLENE GL17 GM PO (21:53)
[2017-04-23] MEDS ORDERED: ENDOCET 5-3251 EACH PO (21:53)
[2017-04-24 04:50] VITALS: BP 137/74
[2017-04-24 04:50] LABS: CHLORIDE 102 mEq/L (99-109); POTASSIUM 3.4 mEq/L (3.7-5.4); SODIUM 142 mEq/L (136-147)
[2017-04-24 04:52] LABS: GLUCOSE 98 mg/dL (70-99)
[2017-04-24 04:56] LABS: GFR ESTIMATE (CALCULATED) > 59 mL/min/ (58.99-99999)
[2017-04-24 04:57] LABS: UREA NITROGEN (BUN) 22 mg/dL (9-23)
[2017-04-24] MEDS ORDERED: K-DUR20 MEQ PO (09:32)
== END 2017-04-24 12:30 | DRG 561 ==
LOC: 3WEST 09:47
PROVIDERS: Physical Medicine & Rehabilitation; Physical Medicine & Rehabilitation Pain Medicine
PROC: F07M0ZZ Range of Motion and Joint Mobility Treatment of Musculoskeletal System - Whole Body (ICD-10-PCS; principal; 2017-04-16)
DX: Z47.1 Aftercare following joint replacement surgery (principal); Z96.651 Presence of right artificial knee joint; R26.2 Difficulty in walking, not elsewhere classified; E87.6 Hypokalemia; I11.0 Hypertensive heart disease with heart failure; I50.9 Heart failure, unspecified; E11.42 Type 2 diabetes mellitus with diabetic polyneuropathy; E66.01 Morbid (severe) obesity due to excess calories; G47.33 Obstructive sleep apnea (adult) (pediatric); F41.9 Anxiety disorder, unspecified; F32.9 Major depressive disorder, single episode, unspecified; Z88.0 Allergy status to penicillin; Z91.041 Radiographic dye allergy status; Z68.38 Body mass index [BMI] 38.0-38.9, adult
CPT/HCPCS: 71045; 80048; 80053; 85027; 94010; 94640; 94640 76; 94660; 94799; 97110 GO; 97530 GP; J1650

== ENCOUNTER 2017-06-10 16:03 | Emergency (ER) | payer OTHER ==
[~2017-06-10] VITALS: Ht 182.9 cm; Wt 118.6 kg
[~2017-06-10 16:03] MED LIST changes: +ENDOCET 10-3251 EACH PO; +K-DUR20 MEQ PO; +LAXATIVE5 M1 PO; +NEURONTIN300 MG PO; +POLYETHYLENE GL17 GM PO; +SINGULAIR10 MG PO
[2017-06-10 17:15] LABS: HEMATOCRIT 40.2 % (38.0-50.0); HEMOGLOBIN 13.2 G/DL (12.5-16.6); MCH 29.9 PG (29.0-34.0); MCHC 32.8 G/DL (30.0-36.0); PLATELET COUNT 119 K/uL (156-360); RBC DIS.WIDTH-CV 16.4 % (11.8-14.6); RBC DIS.WIDTH-SD 55.2 % (39-53); RED BLOOD COUNT 4.42 M/uL (4.00-5.50); WHITE BLOOD COUNT 2.9 K/uL (4.1-10.2)
[2017-06-10 17:27] LABS: ALBUMIN 3.6 g/dL (3.2-4.8); CHLORIDE 106 mEq/L (99-109); SODIUM 144 mEq/L (136-147)
[2017-06-10 17:30] LABS: GLUCOSE 95 mg/dL (70-99); TOTAL PROTEIN 6.6 g/dL (6.4-8.3)
[2017-06-10 17:32] LABS: TOTAL BILIRUBIN 0.9 mg/dL (0.0-1.0)
[2017-06-10 17:33] LABS: ALKALINE PHOSPHATASE 88 IU/L (3-129); CREATININE 1.2 mg/dL (0.6-1.3); GFR ESTIMATE (CALCULATED) > 59 mL/min/ (58.99-99999)
[2017-06-10 17:34] LABS: UREA NITROGEN (BUN) 29 mg/dL (9-23)
[2017-06-10 17:35] LABS: AST (GOT) 23 IU/L (2-34)
[2017-06-10 17:36] LABS: ALT (GPT) 14 IU/L (3-49); TROP-I INTERPRETATION NEGATIVE; TROPONIN-I 0.02 ng/mL (0.0-0.30)
[2017-06-10 18:23] VITALS: BP 119/70
== END 2017-06-10 18:24 | disposition home or self-care (01) ==
LOC: EME 16:03
PROVIDERS: Physician Assistant
DX: I95.9 Hypotension, unspecified (principal); I44.0 Atrioventricular block, first degree; I45.4 Nonspecific intraventricular block; R94.31 Abnormal electrocardiogram [ECG] [EKG]; E11.9 Type 2 diabetes mellitus without complications; J44.9 Chronic obstructive pulmonary disease, unspecified; I50.9 Heart failure, unspecified; G47.30 Sleep apnea, unspecified; F32.9 Major depressive disorder, single episode, unspecified; Z79.51 Long term (current) use of inhaled steroids; Z87.442 Personal history of urinary calculi; Z96.643 Presence of artificial hip joint, bilateral; Z96.652 Presence of left artificial knee joint; Z98.84 Bariatric surgery status; Z88.0 Allergy status to penicillin; Z91.041 Radiographic dye allergy status
CPT/HCPCS: 80053; 83880; 84484; 85027; 93005; 99281; 99283